=== PATIENT | male | born 1960 | race Caucasian/White ===

== ENCOUNTER → 2022-06-13 07:41 | Outpatient (BNVA) | payer BC, SELFPAY | PROVIDERS: PCP Physician Assistant Medical; Referring Provider Physician Assistant Medical; Visit Provider Physician Assistant Surgical ==

== ENCOUNTER → 2022-06-14 08:04 | Outpatient (BNVA) | payer BC, SELFPAY | PROVIDERS: PCP Physician Assistant Medical; Visit Provider Surgery ==

== ENCOUNTER 2022-06-21 07:34 | Outpatient (REF) | payer BC, SELFPAY ==
--- NOTE | ~2022-06-21 | XR_ITS ---
EXAMINATION: XR CHEST CLINICAL INFORMATION: Bariatric service evaluation. E66.01 COMPARISON: None available. TECHNIQUE: 2 views of the chest were obtained. FINDINGS: Slight rightward rotation on frontal view. Lungs clear. No hyperinflation, airspace consolidation, pleural reaction, or effusion. Heart size normal. Hilar and mediastinal contours are unremarkable. No acute bony abnormality. There are scattered degenerative disc changes thoracic spine. Fusion hardware seen overlying lower cervical spine. XR/XR chest 2V IMPRESSION: Unremarkable examination.
--- NOTE | 2022-06-21 07:45 | ECG_ITS ---
Test Reason : e66.1 Blood Pressure : / mmHG Vent. Rate : 068 BPM Atrial Rate : 068 BPM P-R Int : 162 ms QRS Dur : 084 ms QT Int : 378 ms P-R-T Axes : 055 010 064 degrees QTc Int : 401 ms Normal sinus rhythm Normal ECG No previous ECGs available Referred By: Dario De Dios Electronically Signed By:Rolo Hutchins
[2022-06-21 07:48] LABS: MANUAL DIFF FLAG NO
[2022-06-21 08:09] LABS: Basophils Percent Auto 0.6 % (0-2); Eosinophils Absolute Auto 0.1 X10*3/uL (0.0-0.4); Eosinophils Percent Auto 1.7 % (0-4); Hematocrit 43.1 % (42.0-52.0); Hemoglobin 14.9 g/dl (14.0-18.0); Imm Gran Abs Auto 0.01 X10*3/uL (0.00-0.03); Imm Gran Pct Auto 0.2 % (0.0-0.4); Lymphocytes Absolute Auto 1.3 X10*3/uL (1.2-4.9); Lymphocytes Percent Auto 23.8 % (20-40); Mean Corpuscular HGB Conc 34.6 g/dl (31.0-36.0); Mean Corpuscular Hemoglobin 29.3 pg (27.0-33.0); Mean Corpuscular Volume 84.8 fL (80.0-98.0); Mean Platelet Volume 9.2 fL (9.4-12.4); Monocytes Absolute Auto 0.4 X10*3/uL (0.1-1.2); Monocytes Percent Auto 7.3 % (2-11); Neutrophils Absolute Auto 3.6 x10*3/uL (2.0-8.3); Neutrophils Percent Auto 66.4 % (45-73); Platelet Count 180 X10*3/uL (160-400); Red Blood Count 5.08 X10*6/uL (4.60-5.80); Red Cell Distribution Width 12.2 % (11.0-16.0); White Blood Count 5.3 X10*3/uL (4.8-10.8)
[2022-06-21 08:38] LABS: Estimated Average Glucose 117 mg/dL; Hemoglobin A1c % 5.7 %
[2022-06-21 09:17] LABS: Alanine Aminotransferase 29 U/L (0-40); Albumin Level 4.4 g/dL (3.5-5.0); Alkaline Phosphatase 75 U/L (39-117); Anion Gap 14 (12-20); Aspartate Amino Transferase 27 U/L (5-37); Bilirubin Total 0.7 mg/dL (0.0-1.0); Blood Urea Nitrogen 18 mg/dL (9-16); C Reactive Protein 0.65 mg/dL (< or = 0.50); Calcium 9.6 mg/dL (8.4-10.2); Carbon Dioxide 25 mmol/L (22-29); Chloride 104 mmol/L (96-108); Cholesterol 211 mg/dL; Estimated Glomerular Filt Rate > 60; Glucose Random 124 mg/dL (60-115); HDL Cholesterol 53 mg/dL; Iron 79 mcg/dL (45-160); LDL Cholesterol Calculated 135 mg/dl; Percent Iron Saturation 24 % (15-50); Potassium 4.4 mmol/L (3.3-5.1); Sodium 139 mmol/L (135-145); Total Iron Binding Capacity 331 mcg/dL (228-428); Total Protein 6.8 g/dL (6.5-8.0); Triglycerides 115 mg/dL; Unsaturated Iron Binding 252 ug/dL
[2022-06-21 09:38] LABS: Folate 17.7 ng/mL (> or = 4.0)
[2022-06-21 09:55] LABS: Ferritin 133 ng/mL (20-250); Insulin 19 uU/mL (2-29); TSH reflex Free T4 1.15 uIU/mL (0.32-4.0); Vitamin B12 949 pg/mL (200-900); Vitamin D 25-OH Total 56.7 ng/mL (>30)
[2022-06-23 16:33] LABS: Calcium (PTHI) 9.4 mg/dL (8.6-10.3); PTHI 38 pg/mL (16-77)
[2022-06-27 06:33] LABS: Zinc 119 mcg/dL (60-130)
[2022-06-28 14:59] LABS: Vitamin B1 23 nmol/L (8-30)
[2022-06-29 00:43] LABS: Vitamin A 58 mcg/dL (38-98)
== END 2022-06-21 07:35 | disposition home or self-care (01) ==
LOC: HO.XRAY 07:34
PROVIDERS: PCP Physician Assistant Medical; Visit Provider Surgery
DX: E66.01 Morbid (severe) obesity due to excess calories (principal); E78.5 Hyperlipidemia, unspecified; G47.30 Sleep apnea, unspecified; I10 Essential (primary) hypertension; J45.909 Unspecified asthma, uncomplicated; K21.9 Gastro-esophageal reflux disease without esophagitis
CPT/HCPCS: 36415; 71046; 80053; 80061; 82306; 82607; 82728; 82746; 83036; 83525; 83540; 83970; 84425; 84443; 84590; 84630; 85025; 86140; 93005

== ENCOUNTER 2022-06-29 07:46 | Outpatient (REF) | payer BC, SELFPAY ==
--- NOTE | ~2022-06-29 | US_ITS ---
EXAMINATION: US COMPLETE ABDOMEN WITH LIVER ELASTOGRAPHY CLINICAL INFORMATION: Morbid/severe obesity. COMPARISON: None available. TECHNIQUE: Real-time imaging of the abdominal viscera. Noninvasive ultrasound liver fibrosis assessment is performed using Yee ElastPQ point quantification shear wave elastography (2D-SWE) with a C5-2 MHz transducer. Multiple elastography samples are obtained. FINDINGS: PANCREAS: Normal. The visualized pancreatic head and body are normal in appearance. The remainder of the pancreas is obscured from visualization by the overlying bowel gas. ABDOMINAL AORTA: The proximal, middle, and distal aortic segments are normal in caliber. INFERIOR VENA CAVA: Visualized portions are normal. LIVER: The liver demonstrates normal size, contour and increased echogenicity. No focal lesion or intrahepatic biliary duct dilatation. The right lobe measures 14.1 cm in length. The left lobe measures 9.7 cm in length. Portal flow is hepatopedal. Shear wave liver elastography median stiffness is 1.72 m/s (reference: normal median stiffness is 1.3 m/s or less). IQR/median stiffness to assess sampling precision is 0.09 (reference: good quality data set is IQR/median stiffness of 0.15 or less). GALLBLADDER: Normal. The gallbladder is physiologically distended without evidence of stones, sludge, polyps, wall thickening or pericholecystic fluid. COMMON BILE DUCT: Normal in caliber measuring 0.6 cm in diameter. RIGHT KIDNEY: There is an anechoic simple cyst, midpole medially, measuring 0.9 x 0.9 x 0.9 cm. There is an echogenic foci without twinkle artifact.. No hydronephrosis. No renal calculi or focal parenchymal lesions. The kidney measures 10.3 cm in maximum dimension. LEFT KIDNEY: Linear echogenic area likely calcified vessels. No hydronephrosis. No renal calculi or focal parenchymal lesions. The kidney measures 11.3 cm in maximum dimension. SPLEEN: Normal. The spleen measures 12.7 cm in maximum dimension. FREE FLUID: None. US/US abdomen comp w elastography IMPRESSION: 1. Diffuse hepatic steatosis without focal lesion. 2. Simple cyst, right kidney, measuring 0.9 cm. There are bilateral echogenic foci in kidneys; question small calcifications. 3. Liver elastography: Median liver stiffness measures 1.7 m/s corresponding to cACLD suggestive. REFERENCE: Society of Radiologists in Ultrasound Liver Stiffness Thresholds (2020): LIVER STIFFNESS THRESHOLDS: *Liver Stiffness equal or less than 1.3 m/s: High probability of being normal. *Liver Stiffness less than 1 m/s: In the absence of other known clinical signs, rules out compensated advanced chronic liver disease. *Liver Stiffness 1.7-2.1 m/s: Suggestive of compensated advanced chronic liver disease but need further test for confirmation. *Liver Stiffness over 2.1 m/s: Rules in compensated advanced chronic liver disease. *Liver Stiffness over 2.4 m/s: Suggestive of clinically significant portal hypertension. QUALITY OF DATA SET: *IQR/Median value equal or less than 0.15 implies a quality data set. *IQR/Median value over 0.15 implies a poor quality data set. SIGNIFICANT CHANGE FROM PRIOR EXAM: Significant change if liver stiffness measurement is 10% or greater from prior exam. OTHER CONSIDERATIONS: The stage of liver fibrosis may be overestimated in the setting of acute hepatitis, liver inflammation, elevated liver function tests, hepatic vascular congestion, obstructive cholestasis, non-fasting state, and infiltrative diseases such as amyloidosis and lymphoma. In some patients with NAFLD, the liver stiffness thresholds for compensated advanced chronic liver disease may be lower. In causes other than viral hepatitis and NAFLD, liver stiffness thresholds are not well established.
--- NOTE | ~2022-06-29 | FL_ITS ---
EXAMINATION: XR FLUOROSCOPY UPPER GI WITH AIR CLINICAL INFORMATION: Morbid obesity. COMPARISON: None available. TECHNIQUE: Air-contrast upper GI examination. FINDINGS: There is normal apposition of the vocal cords while saying E. There is normal elevation of the soft palate while saying candy. Patient is status post previous cervical spine surgery. Patient swallowed thin and thick barium and half-inch diameter barium tablet without difficulty. No nasopharyngeal reflux or tracheal aspiration. No Zenker's diverticulum or significant retropharyngeal hypertrophy. There is normal esophageal motility without hiatal hernia. No persistent stricture or mucosal abnormality was appreciated. There was spontaneous gastroesophageal reflux to the level of the tyrone which cleared rapidly. Patient was unable to retain gas with limited distention of the stomach being present. No abnormal mass or ulceration was appreciated. There was no delay in gastric emptying. The duodenal bulb and sweep appeared unremarkable. FLUOROSCOPY TIME: 2.4 minutes DOSE AREA PRODUCT: 36.328 Gy-cm2 (cilne-centimeter squared) FL/FL upper GI w air IMPRESSION: Gastroesophageal reflux to the level of the tyrone which cleared rapidly. No esophageal mucosal abnormality appreciated.
== END 2022-06-29 07:47 | disposition home or self-care (01) ==
LOC: HO.US 07:46
PROVIDERS: PCP Physician Assistant Medical; Visit Provider Surgery
DX: K21.9 Gastro-esophageal reflux disease without esophagitis (principal); G47.30 Sleep apnea, unspecified; J45.909 Unspecified asthma, uncomplicated; E66.01 Morbid (severe) obesity due to excess calories; I10 Essential (primary) hypertension; E78.5 Hyperlipidemia, unspecified
CPT/HCPCS: 74246; 76705; 76981

== ENCOUNTER → 2022-07-18 08:01 | Outpatient (BNVA) | payer BC, SELFPAY | PROVIDERS: PCP Physician Assistant Medical; Visit Provider Surgery ==

== ENCOUNTER → 2022-07-20 07:43 | Outpatient (BNVA) | payer BC, SELFPAY | PROVIDERS: PCP Physician Assistant Medical; Visit Provider Physician Assistant Surgical ==

== ENCOUNTER 2022-07-21 17:33 | Outpatient (REF) | payer BC, SELFPAY ==
[2022-07-22 12:37] LABS: H Pylori Breath Test Negative (Negative)
== END 2022-07-21 17:34 | disposition home or self-care (01) ==
LOC: HO.LNP 17:33
PROVIDERS: Visit Provider Surgery
DX: E66.01 Morbid (severe) obesity due to excess calories (principal); E78.5 Hyperlipidemia, unspecified; G47.30 Sleep apnea, unspecified; I10 Essential (primary) hypertension; J45.909 Unspecified asthma, uncomplicated; K21.9 Gastro-esophageal reflux disease without esophagitis
CPT/HCPCS: 83013

== ENCOUNTER → 2022-07-25 09:00 | Outpatient (BNVA) | payer BC, SELFPAY | PROVIDERS: PCP Physician Assistant Medical; Visit Provider Counselor Mental Health ==

== ENCOUNTER → 2022-07-27 09:22 | Outpatient (BNVA) | payer BC, SELFPAY | PROVIDERS: PCP Physician Assistant Medical; Visit Provider Dietitian, Registered | DX: E66.9 Obesity, unspecified (principal); Z71.3 Dietary counseling and surveillance | CPT/HCPCS: 97802 ==

== ENCOUNTER 2022-08-23 14:00 | Outpatient (AMB) | payer BC, SELFPAY ==
--- NOTE | 2022-08-23 13:11 | MHC.OFFVISWM ---
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 Allergies Tixepec-VDN-[id number] Reductase Inhibitor Allergy (Mild, Verified 07/20/22 07:54) LEG CRAMPS Medication List - Last Reconciled 08/23/22 by JARED Ward albuterol sulfate 90 mcg/actuation 2 puffs inhalation Q4-6H PRN amlodipine 5 mg PO DAILY aspirin (Adult Aspirin Regimen) 81 mg PO DAILY bisacodyl (Dulcolax (bisacodyl)) 10 mg PO BEDTIME ucpjhsvpda-ritibfbvqvttd-nniu 50-325-40 mg 1 cap PO Q4-6H PRN cholestyramine (with sugar) 4 gram (Questran) PO clotrimazole 1% (Clotrimazole AF) 1 appl topical BID dicyclomine 10 mg PO TID PRN fluoxetine 20 mg PO DAILY latanoprost 0.005% 1 drp ophthalmic (eye) QPM lisinopril 30 mg PO DAILY lovastatin 40 mg PO DAILY omeprazole 40 mg PO DAILY scopolamine base 1 patch transdermal Q3D PRN HPI HPI Comments History of Present Illness Details 62 yo male returns for pre-op planning in [facility] clinic initial weight on 06/14/22 was 255.4 pounds with a BMI of 43.8 Weight today 220 pounds and a BMI 37.8 weight loss of 35.4 or 13.8 % TBWL He states he has a supplemental insurance called [employer] through [employer] (work) and that his surgery is covered but only by an in network provider.. Meal plan: 1 Pure protein shakes (1/2 scoop each in 8oz almond milk) 2 Zone Perfect protein bars and one meal (10 forks of protein and 10 forks of salad or vegetables) exercise plan: walking 3 x per week, 500 calories, [facility] Medical History Asthma Back pain Depression DJD (degenerative joint disease) GERD (gastroesophageal reflux disease) Headaches due to old head injury Hyperlipidemia Hypertension Morbid obesity Sleep apnea treated with continuous positive airway pressure (CPAP) Surgical History History of ankle surgery History of back surgery History of dental surgery History of laparoscopic cholecystectomy Hx of colonoscopy Family History Mother Hypertension High cholesterol Emphysema lung Heart attack Father Heart attack Hypertension Prostate cancer Brother Heart attack Diabetes Brother No problems noted. Sister Hypertension Sister Cancer Sister No problems noted. Son No problems noted. Son No problems noted. Social History Alcohol intake: current Alcohol intake frequency: holidays/special occasions only Patient Tobacco Use Status: Never used Tobacco Assessment & Plan Assessment & Plan (1) Obesity: Code(s): E66.9 - Obesity, unspecified Plan: Has made excellent progress in the program and met all requirements for surgery. Will continue current meal plan and exercise plan. Will discuss with insurance company re coverage Telehealth Telehealth Location of provider rendering services: practice address Location of patient: other Patient Identification confirmed using: Name, : Yes Telehealth method: video Patient verbally consented to treatment: Yes Patient verbally consented to billing insurance company: Yes Patient informed of any privacy concerns related to visit: Yes Minutes spent on Phone/Video with Pt.: 15 Coding Level of Care Code Tele Est Pt Level 3 (63821) Diagnoses Obesity E66.9 Time Spent (min) 20
[2022-08-23 14:03] VITALS: BMI 37.8
== END 2022-08-23 15:01 | disposition home or self-care (01) ==
LOC: HO.HBS 14:29
PROVIDERS: PCP Physician Assistant Medical; Visit Provider Physician Assistant Surgical
DX: E66.9 Obesity, unspecified (principal); Z68.37 Body mass index [BMI] 37.0-37.9, adult
CPT/HCPCS: 99213

== ENCOUNTER → 2022-08-23 14:00 | Outpatient (BNVA) | payer BC, SELFPAY | PROVIDERS: PCP Physician Assistant Medical; Visit Provider Physician Assistant Surgical ==

== ENCOUNTER 2022-09-11 07:53 | Outpatient (AMB) | payer BC, SELFPAY ==
--- NOTE | 2022-09-11 13:27 | MHC.OFFVISWM ---
Intake VS Expanded 09/11/22 13:33 Height 5 ft 4 in Weight 218 lb 6 oz BMI 37.5 Body Fat 82.6 Body Fat Percentage 37.8 Free Fat Mass 136 Visceral Mass 18 Water Mass 98.1 BMR 1,696 Intake Visit Reasons: TV Follow Up SWL Allergies Nnkahol-KMS-QzL Reductase Inhibitor Allergy (Mild, Verified 07/20/22 07:54) LEG CRAMPS HPI TV Follow Up SWL HPI Details Start time: 1.22pm, End time: 1.37pm ?I spent 10 minutes speaking with the patient on the phone plus an additional 5 minutes reviewing and updating records for a total of 15 minutes HPI Comments History of Present Illness Details Overall weight loss: 36.8lbs, or 14.41% TBWL Is doing 2 Pure protein shakes (1/2 scoop each in almond milk), 2 Zone Perfect protein bars and one meal (10 forks of protein and 10 forks of salad or vegetables) Exercise: treadmill for 30-40 minutes PFSH Medical History Asthma Back pain Depression DJD (degenerative joint disease) GERD (gastroesophageal reflux disease) Headaches due to old head injury Hyperlipidemia Hypertension Morbid obesity Sleep apnea treated with continuous positive airway pressure (CPAP) Surgical History History of ankle surgery History of back surgery History of dental surgery History of laparoscopic cholecystectomy Hx of colonoscopy Family History Mother Hypertension High cholesterol Emphysema lung Heart attack Father Heart attack Hypertension Prostate cancer Brother Heart attack Diabetes Brother No problems noted. Sister Hypertension Sister Cancer Sister No problems noted. Son No problems noted. Son No problems noted. Social History Alcohol intake: current Alcohol intake frequency: holidays/special occasions only Patient Tobacco Use Status: Never used Tobacco Assessment & Plan Assessment & Plan (1) Obesity: Code(s): E66.9 - Obesity, unspecified Plan: 1. Continue same nutritional plan of 2 Pure protein shakes (1/2 scoop each in almond milk), 2 Zone Perfect protein bars and one meal (10 forks of protein and 10 forks of salad or vegetables) 2. Exercise: continue treadmill for 30-40 minutes 3. Continue to send me weight measurements weekly (2) BMI 37.0-37.9, adult: Code(s): Z68.37 - Body mass index [BMI] 37.0-37.9, adult Telehealth Telehealth Location of provider rendering services: practice address Location of patient: address on file Patient Identification confirmed using: Name, : Yes Telehealth method: voice only Patient verbally consented to treatment: Yes Patient verbally consented to billing insurance company: Yes Patient informed of any privacy concerns related to visit: Yes Minutes spent on Phone/Video with Pt.: 15 Coding Level of Care Code Tele Est Pt Level 2 (79767) Diagnoses Obesity E66.9 BMI 37.0-37.9, adult Z68.37 Time Spent (min) 15
[2022-09-11 13:33] VITALS: BMI 37.5
== END 2022-09-11 13:38 | disposition home or self-care (01) ==
LOC: HO.HBS 07:53
PROVIDERS: PCP Physician Assistant Medical; Visit Provider Surgery
DX: E66.9 Obesity, unspecified (principal); Z68.37 Body mass index [BMI] 37.0-37.9, adult
CPT/HCPCS: 99442

== ENCOUNTER → 2022-09-11 07:53 | Outpatient (BNVA) | payer BC, SELFPAY | PROVIDERS: PCP Physician Assistant Medical; Visit Provider Surgery ==